=== PATIENT | female | born 1965 ===

== ENCOUNTER 2019-09-07 20:51 | Inpatient (IN) | payer MEDICAID ==
[~2019-09-07] VITALS: Ht 152.4 cm; Wt 80.3 kg
[2019-09-07 22:11] LABS: MEAN CORPUSCULAR HEMOGLOBIN 16.1 pg (27.0-34.8); MEAN CORPUSCULAR VOLUME 58.7 fL (80-100); MEAN PLATELET VOLUME 8.8 fL (7.4-10.4); PLATELET COUNT 384 x10^3/uL (130-400); RED BLOOD COUNT 4.17 x10^6/uL (3.82-5.3)
[2019-09-07 22:13] LABS: MEAN CORPUSCULAR HGB CONC 27.5 g/dL (32.4-35.8)
--- NOTE | 2019-09-07 22:14 | NUR ---
REPORT FROM LAB FOR CRITICAL HEMOGLOBIN OF 6.7- PROVIDER MADE AWARE
[2019-09-07 22:15] LABS: ALANINE AMINOTRANSFERASE 25 U/L (12-78); ALBUMIN 3.5 g/dL (3.4-5.0); ANION GAP 6 mmol/L (5-15); CALCIUM 8.7 mg/dL (8.5-10.1); CHLORIDE 108 mmol/L (98-107); CREATININE 0.79 mg/dL (0.55-1.02)
[2019-09-07 22:20] LABS: ALKALINE PHOSPHATASE 110 U/L (45-117); BILIRUBIN,TOTAL 0.3 mg/dL (0.2-1.0); TOTAL PROTEIN 7.4 g/dL (6.4-8.2); TROPONIN I < 0.015 ng/mL (0.000-0.045)
[2019-09-07] MEDS ORDERED: SODIUM CHLORIDE 0.9% 1,000ML IVBOLUS ONE (22:30)
[2019-09-07] MEDS ORDERED: SODIUM CHLORIDE FLUSH 10ML SYR IVF ONE (22:30)
[2019-09-07 22:37] LABS: MD YES
[2019-09-07 22:40] LABS: BASOS#(MANUAL) 0.13 x10^3/uL (0-0.1); BASOS% (MANUAL) 2 % (0-1); EOS#(MANUAL) 0.06 x10^3/uL (0.0-0.4); EOS% (MANUAL) 1 % (1-7); LYMPHS% (MANUAL) 27 % (22-44); MONOS#(MANUAL) 0.82 x10^3/uL (0.3-2.7); MONOS% (MANUAL) 13 % (2-9); NRBC % (MANUAL) 1 % (0-1); SEG#(MANUAL) 3.59 x10^3/uL (1.8-6.8); SEGS% (MANUAL) 57 % (42-75)
[2019-09-07 22:41] LABS: ANISOCYTOSIS 2+; HYPOCHROMIA 3+; MICROCYTOSIS 2+; OVALOCYTES 1+; TARGET CELLS 1+; TEAR DROPS 1+
[2019-09-07 22:42] LABS: <PLATELET ESTIMATE> ADEQUATE; <PLT MORPHOLOGY> NORMAL PLT MORPH; ECHINOCYTES 1+; POLYCHROMASIA 1+
[2019-09-07 22:43] LABS: INTERNATIONAL NORMALIZED RATIO 0.9 (0.93-1.1); PROTHROMBIN TIME 9.5 Seconds (9.6-11.5)
[2019-09-07] MEDS ORDERED: PANTOPRAZOLE 80 MG in SODIUM CHLORIDE 0.9% 50 ML IVPB ONE (22:43)
[2019-09-07] MEDS ORDERED: PANTOPRAZOLE 80 MG in SODIUM CHLORIDE 0.9% 100 ML IV SCH (22:43)
--- NOTE | 2019-09-07 23:03 | NUR ---
BLOOD CONSENT OBTAINED SUPPLIES GATHERED TO PLACE 2 PIVS REPORT TO NAINA BARRIOS
--- NOTE | 2019-09-07 23:38 | NUR ---
PURPLE SLIP TUBED TO BB
[2019-09-07 23:50] VITALS: BP 151/82
[2019-09-07 23:56] VITALS: BP 156/82
[2019-09-07] MEDS ORDERED: HYDROcodone/APAP 5/325 TABLET ONE (23:58)
[2019-09-08] MEDS ORDERED: HYDROcodone/APAP 5/325 TABLET PO ONE
--- NOTE | 2019-09-08 00:06 | NUR ---
REPORT GIVEN TO ALEXANDER BARRIOS. PT TOLERATING BLOOD TRANSFUSION WELL. NO SIGNS OR COMPLAINTS OF TRANSFUSION REACTION. BLOOD INFUSING AT TIME OF TRANSFER TO ADMIT BED.
[2019-09-08 00:52] VITALS: BP 155/83
[2019-09-08 01:00] VITALS: BP 140/80
[2019-09-08] MEDS ORDERED: PANTOPRAZOLE 80 MG in SODIUM CHLORIDE 0.9% 100 ML IV SCH (01:00)
[2019-09-08] MEDS ORDERED: ENALAPRILAT 1.25 MG/ML, 2ML IVPush PRN (01:00)
[2019-09-08] MEDS ORDERED: TEMAZEPAM 15 MG CAPSULE PO PRN (01:00)
[2019-09-08] MEDS ORDERED: LIDODERM 5% PATCH TD PRN (01:00)
[2019-09-08] MEDS ORDERED: GABAPENTIN 300 MG CAPSULE PO PRN (01:00)
[2019-09-08] MEDS ORDERED: ONDANSETRON 2MG/ML, 2ML IVPush PRN (01:00)
[2019-09-08] MEDS ORDERED: ACETAMINOPHEN 325 MG TABLET PO PRN (01:00)
[2019-09-08] MEDS ORDERED: BISACODYL 10 MG SUPP PR PRN (01:00)
[2019-09-08 01:07] VITALS: BP 141/83
[2019-09-08] MEDS ORDERED: FLU VACC QS2019-20 36MOS UP/PF 0.5 ML IM-VACC ONE ×2 (02:00→03:00)
[2019-09-08 02:33] VITALS: BP 124/67
[2019-09-08 02:36] VITALS: BP 124/67
[2019-09-08 07:20] VITALS: BP 107/68
[2019-09-08] MEDS ORDERED: PANT40TA3 PO (10:24)
== END 2019-09-08 12:35 | disposition home or self-care (01) | DRG 378 ==
LOC: ED 22:54 → EDIP 23:24 → 3N 09-08 00:38 → DCLOUNGE 09-08 12:26
PROVIDERS: ADMIT Internal Medicine; ATTEND Hospitalist
PROC: 30233N1 Transfusion of Nonautologous Red Blood Cells into Peripheral Vein, Percutaneous Approach (ICD-10-PCS; principal; 2019-09-07)
DX: K92.2 Gastrointestinal hemorrhage, unspecified (principal); D62 Acute posthemorrhagic anemia; Z80.3 Family history of malignant neoplasm of breast; Z83.3 Family history of diabetes mellitus; Z85.41 Personal history of malignant neoplasm of cervix uteri; Z91.030 Bee allergy status; K76.89 Other specified diseases of liver
CPT/HCPCS: 36415; 36430; 76700; 80053; 83690; 84484; 85014; 85018; 85025; 85610; 85730; 86850; 86900; 86923; 90686; 93005; 96365; 99285; C9113; J7030; P9016